=== PATIENT | male | born 1940 | race Two or more races ===

== ENCOUNTER 2019-05-28 18:21 | Inpatient (IN) | payer MEDICARE, OTHER ==
[~2019-05-28] VITALS: Ht 165.1 cm; Wt 52.6 kg
--- NOTE | 2019-05-28 18:48 | NUR ---
BED ASIGNED:214-A
[2019-05-28 18:54] LABS: BASOPHILS # (AUTO) 0.1 /CMM (0.0-0.2); EOSINOPHILS % (AUTO) 3.6 % (0.0-6.0); HEMATOCRIT 43 % (39-51); HEMOGLOBIN 14.2 g/dL (13.5-17.5); LYMPHOCYTES # (AUTO) 2.3 /CMM (0.8-4.8); LYMPHOCYTES % (AUTO) 23.6 % (20.0-44.0); MEAN CORPUSCULAR HGB CONC 33 g/dl (31.0-36.0); MEAN CORPUSCULAR VOLUME 85 fL (80-96); MONOCYTES # (AUTO) 0.8 /CMM (0.1-1.30); MONOCYTES % (AUTO) 7.8 % (2.0-12.0); NEUTROPHILS # (AUTO) 6.3 /CMM (1.8-8.9); PLATELET COUNT (AUTO) 240 /CMM (150-450); WHITE BLOOD COUNT (AUTO) 9.9 K/uL (4.3-11.0)
[2019-05-28] MEDS ORDERED: SENN-261 PO (18:54)
[2019-05-28] MEDS ORDERED: BISA10SU11 RC (18:54)
[2019-05-28] MEDS ORDERED: GABA-534 PO (18:54)
[2019-05-28] MEDS ORDERED: POLY15DR40 EACHEYE (18:54)
[2019-05-28] MEDS ORDERED: HYDR-4384 PO (18:54)
[2019-05-28] MEDS ORDERED: ATOR40TA PO (18:54)
[2019-05-28] MEDS ORDERED: TAMS-12 PO (18:54)
[2019-05-28] MEDS ORDERED: PRED1TAB PO (18:54)
[2019-05-28] MEDS ORDERED: CLOP75TA15 PO (18:54)
[2019-05-28] MEDS ORDERED: FLUT16SP16 BNOSTRILS (18:54)
[2019-05-28] MEDS ORDERED: METO25TA20 PO (18:54)
[2019-05-28] MEDS ORDERED: IPRA3AMP23 IH ×2 (18:54)
[2019-05-28] MEDS ORDERED: CHOL500052 PO (18:54)
[2019-05-28] MEDS ORDERED: BUDE10.2 IH (18:54)
[2019-05-28] MEDS ORDERED: PANT40TA2 PO (18:54)
[2019-05-28] MEDS ORDERED: NA P133E RC (18:54)
[2019-05-28] MEDS ORDERED: CLON0.1T PO (18:54)
[2019-05-28] MEDS ORDERED: ASCO-352 PO (18:54)
[2019-05-28] MEDS ORDERED: MEMA10TA PO (18:54)
[2019-05-28] MEDS ORDERED: FERR325T23 PO (18:54)
[2019-05-28] MEDS ORDERED: MAGN400O6 PO (18:54)
[2019-05-28] MEDS ORDERED: ACET-868 PO ×2 (18:54)
[2019-05-28] MEDS ORDERED: AMIN30LI2 PO (18:54)
[2019-05-28] MEDS ORDERED: DOCU-141 PO (18:54)
--- NOTE | 2019-05-28 18:57 | NUR ---
patient came in via ems from care facility for medical clearance prior [facility] admission. On lynch air, breathing evenly and unlabored. connected to the monitor and pulse ox. kept comfortable, will continue to monitor accordingly.
[2019-05-28 19:04] LABS: CALCIUM, SERUM 9.2 mg/dL (8.5-10.1); CARBON DIOXIDE 29 mmol/L (21-32); CHLORIDE 105 mmol/L (98-107); CREATININE 0.7 mg/dL (0.6-1.3); GLUCOSE 252 mg/dL (74-106); POTASSIUM 4.4 mmol/L (3.5-5.1); SODIUM SERUM 140 mmol/L (136-145); UREA NITROGEN, BLOOD 18 mg/dL (7-18)
[2019-05-28 19:10] LABS: ALANINE AMINOTRANSFERASE 26 U/L (12-78); ALBUMIN 3.2 g/dL (3.4-5.0); ALCOHOL, BLOOD < 3 mg/dL (0-0); ALKALINE PHOSPHATASE 97 U/L (46-116); ASPARTATE AMINOTRANSFERASE 21 U/L (15-37); BILIRUBIN,DIRECT 0.1 mg/dL (0.0-0.2); BILIRUBIN,TOTAL 0.2 mg/dL (0.2-1.0); SALICYLATE < 2.8 mg/dL (2.8-20.0); TOTAL PROTEIN, SERUM 7.5 g/dL (6.4-8.2)
--- NOTE | 2019-05-28 19:12 | NUR ---
report given to ronak trent tha.
--- NOTE | 2019-05-28 19:22 | NUR ---
URINE COLLECTED AND SENT TO THE LAB
[2019-05-28 19:26] LABS: BILIRUBIN,URINE Negative (NEGATIVE); BLOOD, URINE Trace-intact Ery/uL (NEGATIVE); COLOR,URINE Yellow (YELLOW); KETONES,URINE Negative (NEGATIVE); LEUKOCYTE ESTERASE ,URINE Large (NEGATIVE); NITRITE, URINE Negative (NEGATIVE); PROTEIN,URINE Negative (NEGATIVE); UGLUCOSE Negative (NEGATIVE); UROBILINOGEN,URINE 0.2 EU/dL (0.2)
[2019-05-28 19:28] LABS: APPEARANCE,URINE SLIGHTLY CLOUDY (CLEAR); BACTERIA,URINE Few /HPF (None Seen); WBC,URINE 81-100 /HPF (0-3)
[2019-05-28 19:29] LABS: SQUAMOUS EPITHELIAL CELL,UR Moderate /HPF (None Seen); URINE AMORPHOUS PHOSPHATES Few /HPF (None Seen)
[2019-05-28] MEDS ORDERED: NITROFURANTOIN/NITROFURAN MAC 100 MG CAPSULE PO STA (19:34)
[2019-05-28] MEDS ORDERED: NITROFURANTOIN/NITROFURAN MAC 100 MG CAPSULE ONE (19:36)
--- NOTE | 2019-05-28 19:37 | NUR ---
REPORT GIVEN TO JUSTINA AT [facility]
--- NOTE | 2019-05-28 19:45 | NUR ---
PT WAS TRANSFERRED TO [facility] IN STABLE CONDITION.
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
[2019-05-28 20:12] VITALS: BP 162/76
[2019-05-28 20:13] VITALS: BP 114/63
[2019-05-28] MEDS ORDERED: clonazePAM 0.5 MG TABLET PO PRN (20:30)
[2019-05-28] MEDS ORDERED: BLOOD SUGAR DIAGNOSTIC 1 EACH STRIP IN ONE (20:30)
[2019-05-28] MEDS ORDERED: ACETAMINOPHEN 325 MG TABLET PO PRN (20:30)
[2019-05-28] MEDS ORDERED: MAG HYDROX/AL HYDROX/SIMETH 30 ML UDC PO PRN (20:30)
[2019-05-28] MEDS ORDERED: TEMAZEPAM 7.5 MG CAPSULE PO PRN (20:30)
--- NOTE | 2019-05-28 20:40 | NUR ---
GPS RN NOTE PATIENT'S BS LEVEL IS 265 MG/DL. WILL INFORM MD.
[2019-05-28 22:30] VITALS: BP 126/64
[2019-05-28] MEDS ORDERED: IPRATROPIUM NEB FS 0.5 MG/2.5 ML AMPUL.NEB NEB PRN (22:30)
[2019-05-28] MEDS: predniSONE 1 MG TABLET PO SCH (22:30)
[2019-05-28] MEDS ORDERED: ALBUTEROL HALF STRENGTH 1.25 MG/3 ML VIAL.NEB NEB PRN (22:30)
[2019-05-28] MEDS ORDERED: DEXTROSE 50%-WATER 50 ML DISP.SYRIN IV PRN (22:30)
[2019-05-28] MEDS ORDERED: POLYVINYL ALCOHOL 15 ML BOTTLE EACHEYE PRN (22:30)
[2019-05-28] MEDS: GABAPENTIN 300 MG CAPSULE PO SCH (22:59)
[2019-05-28] MEDS: FERROUS SULFATE (325 MG) 325 MG/TAB TABLET PO SCH (22:59)
[2019-05-28] MEDS: MEMANTINE HCL 5 MG TABLET PO SCH (22:59)
[2019-05-28] MEDS: SENNOSIDES 8.6 MG TABLET PO SCH (22:59)
[2019-05-28] MEDS: ATORVASTATIN 40 MG TABLET PO SCH (22:59)
[2019-05-28] MEDS: TAMSULOSIN 0.4 MG CAP.SR.24H PO SCH (22:59)
[2019-05-28] MEDS: METOPROLOL TARTRATE 25 MG TABLET PO SCH (23:00)
--- NOTE | 2019-05-28 23:00 | NUR ---
SEEN BY PATIENT SEEN BY MORENO DUNCAN AT THIS TIME. DAKOTA DOCUMENTED TO RE EVALUATE PREDNISONE USE IN AM, IF NECESSARY. RN ACLS ALSO REVIEWED POLTS & DOCUMENTED DNR IN HER NOTES. WILL CONTINUE TO MONITOR THE PT. FOR ANY CHANGES.
[2019-05-28] MEDS: BLOOD SUGAR DIAGNOSTIC 1 EACH STRIP IN SCH (23:11)
[2019-05-28] MEDS: INSULIN REGULAR, HUMAN 100 UNIT/ML 3 ML VIAL SQ PRN (23:17)
--- NOTE | 2019-05-28 23:19 | NUR ---
PREDNISONE NOT AVAILABLE ON THE UNIT PREDNISONE 4 MG WAS NOT AVAILABLE ON THE UNIT, DR. DAKOTA MAYER IS SEEING THE PATIENT ON THE UNIT, INFORMED MD ABOUT DRUG NOT BEING AVAILABLE ON THE UNIT AT THIS TIME, MD SUGGESTED TO START GIVING PREDNISONE IN AM. PATIENT'S BREATHING IS EVEN & UNLABORED. NO ACUTE DISTRESS NOTED AT THIS TIME. O2 SAT IS 98% ON RA. WILL CONTINUE TO MONITOR CLOSELY FOR ANY CHANGES.
--- NOTE | 2019-05-29 04:05 | NUR ---
GPS RN NOTE PATIENT IS SLEEPING COMFORTABLY AT THIS TIME. NO BEHAVIOR EPISODE NOTED AT THIS TIME. KEPT CLEAN & DRY. TURNED/REPOSITIONED PER PROTOCOL.
--- NOTE | 2019-05-29 07:12 | NUR ---
DR. GARSIA NOTIFIED CALLED & LEFT A VOICEMAIL TO SUN POWELL THAT MEGAN SWANN WAS ADMITTED UNDER HIS CARE.
[2019-05-29] MEDS: BLOOD SUGAR DIAGNOSTIC 1 EACH STRIP IN SCH ×4 (07:58→22:01)
[2019-05-29 08:00] VITALS: BP 105/65
[2019-05-29] MEDS: DOCUSATE SODIUM 100 MG CAPSULE PO SCH ×2 (09:08→17:41)
[2019-05-29] MEDS: PANTOPRAZOLE 40 MG TABLET.DR PO SCH (09:08)
[2019-05-29] MEDS: FERROUS SULFATE (325 MG) 325 MG/TAB TABLET PO SCH ×2 (09:08→17:42)
[2019-05-29] MEDS: MEMANTINE HCL 5 MG TABLET PO SCH ×2 (09:08→17:41)
[2019-05-29] MEDS: ASCORBIC ACID 500 MG TABLET PO SCH ×2 (09:08→17:42)
[2019-05-29] MEDS: GABAPENTIN 300 MG CAPSULE PO SCH ×3 (09:08→17:42)
[2019-05-29] MEDS: CLOPIDOGREL BISULFATE 75 MG TABLET PO SCH (09:08)
[2019-05-29] MEDS: Z GUARD REMEDY 2 OZ OINT TP SCH (09:09)
[2019-05-29] MEDS: predniSONE 1 MG TABLET PO SCH ×2 (09:09→17:42)
[2019-05-29] MEDS: METOPROLOL TARTRATE 25 MG TABLET PO SCH ×2 (09:09→17:41)
[2019-05-29] MEDS: FLUTICASONE/VILANTEROL 1 EACH BLST.W.DEV IH SCH (09:20)
[2019-05-29] MEDS: CEPHALEXIN MONOHYDRATE 500 MG CAPSULE PO SCH ×3 (09:20→22:19)
--- NOTE | 2019-05-29 10:51 | NUR ---
FACILITY CONTACT: FUNMILAYO spoke with Nisa, admissions director at [facility] Address: [address] [place] [address] who stated pt is able to return and is on a 7 day bed hold.
--- NOTE | 2019-05-29 12:03 | NUR ---
WOUND CARE CONSULT: PT PRESENTS WITH SACRAL SCARRING AND INCONTINENCE ASSOCIATED SKIN DAMAGE TO RT BUTTOCK, PRESENT ON ADMISSION. RECOMMENDATIONS MADE FOR SKIN PROTECTION AND SKIN CARE. DISCUSSED WITH NURSING STAFF. CURRENT VALENCIA SCORE IS 14. MD IN AGREEMENT WITH PLAN OF CARE. Addendum: 05/29/19 at 1205 by STACY GUERRERO WNDNU Amended: Links added.
[2019-05-29] MEDS: INSULIN REGULAR, HUMAN 100 UNIT/ML 3 ML VIAL SQ PRN ×3 (13:04→22:03)
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
--- NOTE | 2019-05-29 15:13 | NUR ---
FAMILY CONTACT: SW spoke to pts son Alec [phone] and informed him of pts hospitalization and discussed pts treatment and discharge plan. Son agreed with pt returning to [facility] Address: [address] [place] [id number] .
--- NOTE | 2019-05-29 15:31 | NUR ---
INITIAL DISCHARGE PLAN: FUNMILAYO spoke with Nisa community health coordinator at [facility] Address: [address], [place] [address] who states pt is able to return and is on a 7 day bed hold. Franklin Michael [phone] agrees with discharge plan. FUNMILAYO will help form a safe and proper discharge in collaboration with .
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
[2019-05-29 16:00] VITALS: BP 108/61
[2019-05-29] MEDS: TAMSULOSIN 0.4 MG CAP.SR.24H PO SCH (17:41)
[2019-05-29 19:40] VITALS: BP 143/77
--- NOTE | 2019-05-29 22:04 | NUR ---
GPS RN NOTES: PT REFUSED TO TAKE 2 UNITS PER SLIDING SCALE FOR 2200 DOSE. PT BLOOD SUGAR IS 131. PT SHOOK HIS HEAD. EXPLAINED RISKS AND BENEFITS. STILL REFUSED X3 CONTINUE TO MONITOR.
[2019-05-29] MEDS: MIRTAZAPINE 15 MG TABLET PO SCH (22:20)
[2019-05-29] MEDS: ATORVASTATIN 40 MG TABLET PO SCH (22:20)
[2019-05-29] MEDS: OLANZAPINE 5 MG/TAB.RAPDIS PO SCH (22:20)
[2019-05-29] MEDS: SENNOSIDES 8.6 MG TABLET PO SCH (22:21)
[2019-05-30] MEDS: BLOOD SUGAR DIAGNOSTIC 1 EACH STRIP IN SCH ×4 (07:32→21:48)
[2019-05-30 08:00] VITALS: BP 145/73
[2019-05-30] MEDS: CLOPIDOGREL BISULFATE 75 MG TABLET PO SCH (08:22)
[2019-05-30] MEDS: GABAPENTIN 300 MG CAPSULE PO SCH ×3 (08:22→16:34)
[2019-05-30] MEDS: FERROUS SULFATE (325 MG) 325 MG/TAB TABLET PO SCH ×2 (08:22→16:33)
[2019-05-30] MEDS: ASCORBIC ACID 500 MG TABLET PO SCH ×2 (08:22→16:36)
[2019-05-30] MEDS: CEPHALEXIN MONOHYDRATE 500 MG CAPSULE PO SCH ×3 (08:22→21:41)
[2019-05-30] MEDS: PANTOPRAZOLE 40 MG TABLET.DR PO SCH (08:22)
[2019-05-30] MEDS: DOCUSATE SODIUM 100 MG CAPSULE PO SCH ×2 (08:22→16:33)
[2019-05-30] MEDS: MEMANTINE HCL 5 MG TABLET PO SCH ×2 (08:22→16:46)
[2019-05-30] MEDS: METOPROLOL TARTRATE 25 MG TABLET PO SCH ×2 (08:23→16:35)
[2019-05-30] MEDS: FLUTICASONE/VILANTEROL 1 EACH BLST.W.DEV IH SCH (08:24)
[2019-05-30] MEDS: Z GUARD REMEDY 2 OZ OINT TP SCH (08:25)
[2019-05-30] MEDS: predniSONE 1 MG TABLET PO SCH ×2 (08:25→16:44)
--- NOTE | 2019-05-30 15:38 | NUR ---
GROUP NOTE: SW encouraged pt to participate in group therapy on this present day discussing "discharge planning." Pt was being cleaned by LEAD INFORMATICA DEVELOPER staff and unable to participate at this time.
[2019-05-30 16:00] VITALS: BP 132/84
[2019-05-30] MEDS: MAGNESIUM HYDROXIDE 30 ML UDC PO PRN (16:52)
[2019-05-30] MEDS: TAMSULOSIN 0.4 MG CAP.SR.24H PO SCH (17:10)
[2019-05-30] MEDS: INSULIN REGULAR, HUMAN 100 UNIT/ML 3 ML VIAL SQ PRN ×2 (17:10→21:42)
[2019-05-30 20:00] VITALS: BP 133/72
[2019-05-30 20:15] VITALS: BP 133/72
[2019-05-30] MEDS: ATORVASTATIN 40 MG TABLET PO SCH (21:41)
[2019-05-30] MEDS: MIRTAZAPINE 15 MG TABLET PO SCH (21:41)
[2019-05-30] MEDS: OLANZAPINE 5 MG/TAB.RAPDIS PO SCH (21:41)
[2019-05-30] MEDS: SENNOSIDES 8.6 MG TABLET PO SCH (21:41)
[2019-05-31] MEDS: PANTOPRAZOLE 40 MG TABLET.DR PO SCH ×2 (07:30→08:02)
[2019-05-31] MEDS: BLOOD SUGAR DIAGNOSTIC 1 EACH STRIP IN SCH ×5 (07:35→21:35)
[2019-05-31 08:00] VITALS: BP 131/72
[2019-05-31] MEDS: FLUTICASONE/VILANTEROL 1 EACH BLST.W.DEV IH SCH ×3 (08:01→13:10)
[2019-05-31] MEDS: DOCUSATE SODIUM 100 MG CAPSULE PO SCH ×4 (08:02→20:20)
[2019-05-31] MEDS: CLOPIDOGREL BISULFATE 75 MG TABLET PO SCH ×3 (08:02→13:10)
[2019-05-31] MEDS: ASCORBIC ACID 500 MG TABLET PO SCH ×4 (08:02→20:20)
[2019-05-31] MEDS: FERROUS SULFATE (325 MG) 325 MG/TAB TABLET PO SCH ×4 (08:02→20:19)
[2019-05-31] MEDS: MEMANTINE HCL 5 MG TABLET PO SCH ×4 (08:02→20:19)
[2019-05-31] MEDS: CEPHALEXIN MONOHYDRATE 500 MG CAPSULE PO SCH ×5 (08:02→21:03)
[2019-05-31] MEDS: GABAPENTIN 300 MG CAPSULE PO SCH ×4 (08:02→17:04)
[2019-05-31] MEDS: METOPROLOL TARTRATE 25 MG TABLET PO SCH ×4 (08:02→20:00)
[2019-05-31] MEDS: Z GUARD REMEDY 2 OZ OINT TP SCH ×2 (08:03→09:32)
[2019-05-31] MEDS: predniSONE 1 MG TABLET PO SCH ×3 (08:03→20:20)
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
[2019-05-31 16:00] VITALS: BP 124/65
[2019-05-31] MEDS: TAMSULOSIN 0.4 MG CAP.SR.24H PO SCH (17:04)
[2019-05-31] MEDS: INSULIN REGULAR, HUMAN 100 UNIT/ML 3 ML VIAL SQ PRN ×2 (17:33→21:45)
[2019-05-31 20:27] VITALS: BP 98/75
--- NOTE | 2019-05-31 20:44 | NUR ---
GPS-RN METOPROLOL 25MG PO NOT GIVEN DUE TO BP 98/75, HR 57.
[2019-05-31] MEDS: OLANZAPINE 5 MG/TAB.RAPDIS PO SCH (22:33)
[2019-05-31] MEDS: SENNOSIDES 8.6 MG TABLET PO SCH (22:34)
[2019-05-31] MEDS: MIRTAZAPINE 15 MG TABLET PO SCH (22:34)
[2019-05-31] MEDS: ATORVASTATIN 40 MG TABLET PO SCH (22:34)
[2019-06-01] MEDS: PANTOPRAZOLE 40 MG TABLET.DR PO SCH (07:30)
[2019-06-01] MEDS: BLOOD SUGAR DIAGNOSTIC 1 EACH STRIP IN SCH ×4 (07:30→22:08)
[2019-06-01 08:00] VITALS: BP 137/70
[2019-06-01] MEDS: FLUTICASONE/VILANTEROL 1 EACH BLST.W.DEV IH SCH (09:00)
[2019-06-01] MEDS: predniSONE 1 MG TABLET PO SCH ×2 (09:00→17:57)
[2019-06-01] MEDS: Z GUARD REMEDY 2 OZ OINT TP SCH (09:00)
[2019-06-01] MEDS: METOPROLOL TARTRATE 25 MG TABLET PO SCH ×2 (09:00→17:57)
[2019-06-01] MEDS: MEMANTINE HCL 5 MG TABLET PO SCH ×2 (09:00→17:57)
[2019-06-01] MEDS: GABAPENTIN 300 MG CAPSULE PO SCH ×3 (09:00→17:57)
[2019-06-01] MEDS: CEPHALEXIN MONOHYDRATE 500 MG CAPSULE PO SCH ×3 (12:17→21:48)
[2019-06-01] MEDS: DOCUSATE SODIUM 100 MG CAPSULE PO SCH ×2 (12:17→17:55)
[2019-06-01] MEDS: FERROUS SULFATE (325 MG) 325 MG/TAB TABLET PO SCH ×2 (12:17→17:55)
[2019-06-01] MEDS: CLOPIDOGREL BISULFATE 75 MG TABLET PO SCH (12:18)
[2019-06-01] MEDS: ASCORBIC ACID 500 MG TABLET PO SCH ×2 (12:18→17:57)
[2019-06-01 16:00] VITALS: BP 130/61
[2019-06-01] MEDS: TAMSULOSIN 0.4 MG CAP.SR.24H PO SCH (18:00)
--- NOTE | 2019-06-01 19:44 | NUR ---
Patient's accucheck for 1700 wasn't done due to multiple acting out behaviors and it was too late patient had ate dinner
--- NOTE | 2019-06-01 19:46 | NUR ---
Patient was up in wheelchair most of day, eating well and compliant with medication regimen, no behavior problems, per HOSPICE EDUCATOR patient complains of constipation after dinner, will pass on to next shift for mornings to obtain an order. Will monitor for safety and any changes in physical status.
[2019-06-01 20:00] VITALS: BP 116/63
[2019-06-01 20:42] VITALS: BP 116/63
[2019-06-01] MEDS: MIRTAZAPINE 15 MG TABLET PO SCH (21:48)
[2019-06-01] MEDS: ATORVASTATIN 40 MG TABLET PO SCH (21:48)
[2019-06-01] MEDS: SENNOSIDES 8.6 MG TABLET PO SCH (21:48)
--- NOTE | 2019-06-01 22:06 | NUR ---
5220 ACCU CHECK NOT DONE BY MARCELLA SCHAEFER.
[2019-06-01] MEDS: INSULIN REGULAR, HUMAN 100 UNIT/ML 3 ML VIAL SQ PRN (22:12)
[2019-06-01] MEDS: OLANZAPINE 5 MG/TAB.RAPDIS PO SCH (22:52)
[2019-06-02] MEDS: Z GUARD REMEDY 2 OZ OINT TP PRN (03:26)
[2019-06-02] MEDS: MAGNESIUM HYDROXIDE 30 ML UDC PO PRN (06:18)
--- NOTE | 2019-06-02 06:19 | NUR ---
PRN MOM GIVEN PATIENT STATED THAT HE IS CONSTIPATED, PRN MOM 30 ML PO GIVEN, WILL ENDORSE TO AM RN TO MONITOR THE PT. FOR BOWEL MOVEMENT.
[2019-06-02] MEDS: BLOOD SUGAR DIAGNOSTIC 1 EACH STRIP IN SCH ×4 (07:28→22:52)
[2019-06-02 08:00] VITALS: BP 122/64
[2019-06-02] MEDS: ASCORBIC ACID 500 MG TABLET PO SCH ×2 (08:18→16:13)
[2019-06-02] MEDS: CLOPIDOGREL BISULFATE 75 MG TABLET PO SCH (08:19)
[2019-06-02] MEDS: predniSONE 1 MG TABLET PO SCH ×2 (08:19→16:14)
[2019-06-02] MEDS: FERROUS SULFATE (325 MG) 325 MG/TAB TABLET PO SCH ×2 (08:19→16:13)
[2019-06-02] MEDS: DOCUSATE SODIUM 100 MG CAPSULE PO SCH ×2 (08:19→16:13)
[2019-06-02] MEDS: GABAPENTIN 300 MG CAPSULE PO SCH ×3 (08:19→16:13)
[2019-06-02] MEDS: MEMANTINE HCL 5 MG TABLET PO SCH ×2 (08:19→16:15)
[2019-06-02] MEDS: CEPHALEXIN MONOHYDRATE 500 MG CAPSULE PO SCH ×3 (08:19→21:26)
[2019-06-02] MEDS: METOPROLOL TARTRATE 25 MG TABLET PO SCH ×2 (08:20→16:14)
[2019-06-02] MEDS: Z GUARD REMEDY 2 OZ OINT TP SCH (08:21)
[2019-06-02] MEDS: FLUTICASONE/VILANTEROL 1 EACH BLST.W.DEV IH SCH (08:21)
[2019-06-02] MEDS: PANTOPRAZOLE 40 MG TABLET.DR PO SCH (08:22)
[2019-06-02 16:00] VITALS: BP 136/74
[2019-06-02] MEDS: TAMSULOSIN 0.4 MG CAP.SR.24H PO SCH (17:14)
[2019-06-02] MEDS: INSULIN REGULAR, HUMAN 100 UNIT/ML 3 ML VIAL SQ PRN ×2 (17:16→23:02)
[2019-06-02 20:03] VITALS: BP 150/86
[2019-06-02] MEDS: ATORVASTATIN 40 MG TABLET PO SCH (21:26)
[2019-06-02] MEDS: MIRTAZAPINE 15 MG TABLET PO SCH (21:27)
[2019-06-02] MEDS: SENNOSIDES 8.6 MG TABLET PO SCH (21:27)
[2019-06-02] MEDS: OLANZAPINE 5 MG/TAB.RAPDIS PO SCH (21:27)
[2019-06-02 22:00] VITALS: BP 123/70
[2019-06-03] MEDS: BLOOD SUGAR DIAGNOSTIC 1 EACH STRIP IN SCH ×4 (07:31→21:53)
[2019-06-03] MEDS: PANTOPRAZOLE 40 MG TABLET.DR PO SCH (07:31)
[2019-06-03 08:00] VITALS: BP 137/75
[2019-06-03] MEDS: GABAPENTIN 300 MG CAPSULE PO SCH ×3 (09:27→17:21)
[2019-06-03] MEDS: predniSONE 1 MG TABLET PO SCH ×2 (09:27→17:19)
[2019-06-03] MEDS: CLOPIDOGREL BISULFATE 75 MG TABLET PO SCH (09:27)
[2019-06-03] MEDS: DOCUSATE SODIUM 100 MG CAPSULE PO SCH ×2 (09:27→17:21)
[2019-06-03] MEDS: METOPROLOL TARTRATE 25 MG TABLET PO SCH ×2 (09:27→17:00)
[2019-06-03] MEDS: ASCORBIC ACID 500 MG TABLET PO SCH ×2 (09:27→17:19)
[2019-06-03] MEDS: FERROUS SULFATE (325 MG) 325 MG/TAB TABLET PO SCH ×2 (09:28→17:19)
[2019-06-03] MEDS: MEMANTINE HCL 5 MG TABLET PO SCH ×2 (09:28→17:19)
[2019-06-03] MEDS: CEPHALEXIN MONOHYDRATE 500 MG CAPSULE PO SCH ×3 (09:28→21:11)
[2019-06-03] MEDS: Z GUARD REMEDY 2 OZ OINT TP SCH (09:53)
[2019-06-03] MEDS: FLUTICASONE/VILANTEROL 1 EACH BLST.W.DEV IH SCH (09:54)
[2019-06-03] MEDS: INSULIN REGULAR, HUMAN 100 UNIT/ML 3 ML VIAL SQ PRN ×3 (11:51→21:55)
[2019-06-03 16:00] VITALS: BP 101/62
[2019-06-03] MEDS: TAMSULOSIN 0.4 MG CAP.SR.24H PO SCH (17:21)
[2019-06-03 20:36] VITALS: BP 134/76
[2019-06-03] MEDS: MIRTAZAPINE 15 MG TABLET PO SCH (21:52)
[2019-06-03] MEDS: ATORVASTATIN 40 MG TABLET PO SCH (21:52)
[2019-06-03] MEDS: SENNOSIDES 8.6 MG TABLET PO SCH (21:52)
[2019-06-03] MEDS: OLANZAPINE 5 MG/TAB.RAPDIS PO SCH (21:59)
[2019-06-04] MEDS: Z GUARD REMEDY 2 OZ OINT TP PRN (04:52)
[2019-06-04] MEDS: PANTOPRAZOLE 40 MG TABLET.DR PO SCH (07:30)
[2019-06-04] MEDS: BLOOD SUGAR DIAGNOSTIC 1 EACH STRIP IN SCH ×4 (07:30→22:10)
[2019-06-04 08:00] VITALS: BP 136/61
[2019-06-04] MEDS: ASCORBIC ACID 500 MG TABLET PO SCH ×2 (09:21→17:32)
[2019-06-04] MEDS: predniSONE 1 MG TABLET PO SCH ×2 (09:21→17:32)
[2019-06-04] MEDS: MEMANTINE HCL 5 MG TABLET PO SCH ×2 (09:21→17:32)
[2019-06-04] MEDS: CLOPIDOGREL BISULFATE 75 MG TABLET PO SCH (09:21)
[2019-06-04] MEDS: GABAPENTIN 300 MG CAPSULE PO SCH ×3 (09:22→17:37)
[2019-06-04] MEDS: DOCUSATE SODIUM 100 MG CAPSULE PO SCH ×2 (09:22→17:32)
[2019-06-04] MEDS: CEPHALEXIN MONOHYDRATE 500 MG CAPSULE PO SCH ×3 (09:22→21:51)
[2019-06-04] MEDS: FERROUS SULFATE (325 MG) 325 MG/TAB TABLET PO SCH ×2 (09:22→17:32)
[2019-06-04] MEDS: METOPROLOL TARTRATE 25 MG TABLET PO SCH ×2 (09:22→17:36)
[2019-06-04] MEDS: Z GUARD REMEDY 2 OZ OINT TP SCH (09:23)
[2019-06-04] MEDS: FLUTICASONE/VILANTEROL 1 EACH BLST.W.DEV IH SCH (09:26)
--- NOTE | 2019-06-04 10:43 | NUR ---
WOUND CARE CONSULT: PT SEEN FOR DRY ABRASION TO MID/LOWER BACK. NO DRAINAGE, TENDERNESS OR ERYTHEMA NOTED. WILL SEE PRN.
[2019-06-04] MEDS: INSULIN REGULAR, HUMAN 100 UNIT/ML 3 ML VIAL SQ PRN ×3 (13:07→22:13)
--- NOTE | 2019-06-04 15:40 | NUR ---
GROUP NOTE: SW encouraged pt to attend group on this present day discussing "suicidal urges." Pt is unable to participate in group due to Dementia with behavioral disturbance and paranoid/delusional thoughts.
[2019-06-04 16:00] VITALS: BP 119/76
[2019-06-04] MEDS: TAMSULOSIN 0.4 MG CAP.SR.24H PO SCH (17:37)
[2019-06-04 20:32] VITALS: BP 105/58
[2019-06-04] MEDS: ATORVASTATIN 40 MG TABLET PO SCH (21:52)
[2019-06-04] MEDS: OLANZAPINE 5 MG/TAB.RAPDIS PO SCH (21:53)
[2019-06-04] MEDS: MIRTAZAPINE 15 MG TABLET PO SCH (21:53)
[2019-06-04] MEDS: SENNOSIDES 8.6 MG TABLET PO SCH (22:36)
[2019-06-05] MEDS: BLOOD SUGAR DIAGNOSTIC 1 EACH STRIP IN SCH ×2 (07:32→11:51)
[2019-06-05 08:00] VITALS: BP 142/71
[2019-06-05] MEDS: CLOPIDOGREL BISULFATE 75 MG TABLET PO SCH (08:31)
[2019-06-05] MEDS: GABAPENTIN 300 MG CAPSULE PO SCH ×2 (08:31→12:55)
[2019-06-05] MEDS: DOCUSATE SODIUM 100 MG CAPSULE PO SCH (08:31)
[2019-06-05] MEDS: MEMANTINE HCL 5 MG TABLET PO SCH (08:31)
[2019-06-05] MEDS: PANTOPRAZOLE 40 MG TABLET.DR PO SCH (08:31)
[2019-06-05] MEDS: ASCORBIC ACID 500 MG TABLET PO SCH (08:31)
[2019-06-05] MEDS: CEPHALEXIN MONOHYDRATE 500 MG CAPSULE PO SCH ×2 (08:31→15:36)
[2019-06-05] MEDS: predniSONE 1 MG TABLET PO SCH (08:32)
[2019-06-05] MEDS: FERROUS SULFATE (325 MG) 325 MG/TAB TABLET PO SCH (08:32)
[2019-06-05] MEDS: METOPROLOL TARTRATE 25 MG TABLET PO SCH (08:32)
[2019-06-05] MEDS: FLUTICASONE/VILANTEROL 1 EACH BLST.W.DEV IH SCH (08:47)
[2019-06-05] MEDS: Z GUARD REMEDY 2 OZ OINT TP SCH (08:47)
--- NOTE | 2019-06-05 09:09 | NUR ---
FACILITY CONTACT: FUNMILAYO spoke with Ekaterina training and development coordinator at [facility] Address: [address] [place] [address] who stated pts 7 day bed hold is up and requested SW to fax clinicals for possible admission.
--- NOTE | 2019-06-05 09:11 | NUR ---
SNF REFERRAL: FUNMILAYO faxed SNF referral to Nisa health care coordinator at [facility] Address: [address] [place] [address] for review.
[2019-06-05] MEDS: INSULIN REGULAR, HUMAN 100 UNIT/ML 3 ML VIAL SQ PRN (11:55)
--- NOTE | 2019-06-05 14:05 | NUR ---
DISCHARGE NOTE: Pt will be discharged at 4:00pm via [facility] to [facility] Address: [address] [place] [address] . Pts son Alec [phone] has been notified. Pts mood is euthymic with congruent affect. Pt denied visual/auditory hallucinations and denied suicidal/homicidal ideation. Pt will be under the care of care Psychiatrist: Psychiatrist: Dr. Mancia Address: [address] [place] [address] Phone: and Director Vaccine: Dr Cunha Address: [address] [address] . The multidisciplinary exit care form was done, printed, signed, and given to the patient.
--- NOTE | 2019-06-05 14:19 | NUR ---
RN-CO: Seen and examined by Dr Mancia and ordered to discontinue hold and discharge patient to [facility]. Patient is calm and cooperative. Denied suicidal and homicidal ideation. Denied auditory and visual hallucination. No acute distress noted.
--- NOTE | 2019-06-05 14:22 | NUR ---
RN-CO: Patient's son Alec was notified.
[2019-06-05 16:00] VITALS: BP 146/67
--- NOTE | 2019-06-05 17:03 | NUR ---
GPS RN NOTE PATIENT IS A 78 YEAR OLD MAN DISCHARGED TO [facility]. PATIENT IS IN STABLE CONDITION. VSS. NO ACUTE DISTRESS NOTED. NO COMPLAINTS. COMPLIANT WITH MEDICATION MANAGEMENT. COOPERATIVE WITH PLAN OF CARE. PSYCHIATRIC TREATMENT PLANS MET. MEDICAL TREATMENT PLANS DEFERRED FOR CONTINUAL MONITORING. DENIES SI/HI VAH AT THE TIME OF DISCHARGE. SKIN CHECK DONE WITH WOUND PICTURES IN CHART. EDUCATED PATIENT ABOUT AFTERCARE WITH COPY PROVIDED. RETURNED PERSONAL BELONGINGS TO PATIENT. MEDICATIONS RECONCILED WITH MARY CAICEDO NP AND DR. GARSIA.DISCHARGE PAPERWORK SIGNED. FOR FOLLOW UP WITH PSYCHIATRIST AND MANAGER MBA WITHIN 1 WEEK. PATIENT LEFT THE [facility] VIA AMBULANCE AT 1700. TRIP NUMBER [id number] .
== END 2019-06-05 17:00 | DRG 885 ==
LOC: ER 18:33 → GPS 19:17
PROVIDERS: ADMIT Psychiatry & Neurology Psychiatry; ATTEND Nurse Practitioner Acute Care
DX: F33.3 Major depressive disorder, recurrent, severe with psychotic symptoms (principal); E11.65 Type 2 diabetes mellitus with hyperglycemia; G93.41 Metabolic encephalopathy; F02.81 Dementia in other diseases classified elsewhere, unspecified severity, with behavioral disturbance; E44.1 Mild protein-calorie malnutrition; N39.0 Urinary tract infection, site not specified; Z68.1 Body mass index [BMI] 19.9 or less, adult; R45.851 Suicidal ideations; G30.9 Alzheimer's disease, unspecified; F29 Unspecified psychosis not due to a substance or known physiological condition; J44.9 Chronic obstructive pulmonary disease, unspecified; Z86.73 Personal history of transient ischemic attack (TIA), and cerebral infarction without residual deficits; E88.09 Other disorders of plasma-protein metabolism, not elsewhere classified; Z88.0 Allergy status to penicillin; Z79.02 Long term (current) use of antithrombotics/antiplatelets
CPT/HCPCS: 36415; 80048-TC; 80076-TC; 80305; 81000-TC; 82962-TC; 85025-TC; 87081-TC; 87086-TC; 87186-TC; 97116-TC; 97530-TC; G0480; J1815; J7512